=== PATIENT | female | born 2000 | race African-American/Black ===

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

== ENCOUNTER 2019-05-03 20:43 | Emergency (ER) | payer OTHER ==
[~2019-05-03] VITALS: Ht 180.3 cm; Wt 74.4 kg
[2019-05-03 20:46] VITALS: Ht 180.3 cm; Wt 74.4 kg
[2019-05-03 21:33] LABS: BASOPHIL % 0.1 % (0-2); PLATELET COUNT 250 x10^3mcL (130-400); RED CELL DISTRIBUTION WIDTH 12.2 % (11.5-14.5)
[2019-05-03 21:42] LABS: CALCIUM 9.7 mg/dL (8.5-10.1); CARBON DIOXIDE 21.2 mmol/L (21-32); CHLORIDE SERUM 102 mmol/L (98-107); GFR1 > 60 mL/min; GLUCOSE SERUM 131 mg/dL (74-106); POTASSIUM SERUM 4.1 mmol/L (3.5-5.1); SODIUM SERUM 140 mmol/L (136-145)
[2019-05-03 21:47] LABS: UA SPECIFIC GRAVITY >=1.030 (1.005-1.035); microscopic required? YES; urine erythrocyte TRACE (NEGATIVE)
[2019-05-03 21:47] LABS: ALBUMIN 4.1 g/dL (3.4-5.0); ALKALINE PHOSPHATASE 66 U/L (46-116); ALT/SGPT 20 U/L (14-59); AMYLASE 32 U/L (25-115); AST/SGOT 13 U/L (15-37); BILIRUBIN TOTAL 0.6 mg/dL (0.20-1.00); LIPASE 97 IU/L (73-393)
[2019-05-03 21:48] LABS: TOTAL PROTEIN, SERUM 8.3 g/dL (6.4-8.2)
[2019-05-04 00:20] VITALS: BP 108/43
== END 2019-05-04 00:20 | disposition home or self-care (01) ==
LOC: ED 20:43
PROVIDERS: Emergency Medicine
DX: K52.9 Noninfective gastroenteritis and colitis, unspecified (principal); Z90.49 Acquired absence of other specified parts of digestive tract
CPT/HCPCS: J1885; J2270; J2405; J2550; J7030

== ENCOUNTER 2019-06-06 07:51 | Emergency (ER) | payer OTHER ==
[~2019-06-06] VITALS: Ht 180.3 cm; Wt 74.8 kg
[2019-06-06 08:27] LABS: RED CELL DISTRIBUTION WIDTH 12.6 % (11.5-14.5)
[2019-06-06 08:32] LABS: CALCIUM 9.6 mg/dL (8.5-10.1); CARBON DIOXIDE 24.9 mmol/L (21-32); CHLORIDE SERUM 103 mmol/L (98-107); CREATININE SERUM 0.9 mg/dL (0.6-1.0); GFR1 > 60 mL/min; GLUCOSE SERUM 126 mg/dL (74-106); POTASSIUM SERUM 4.2 mmol/L (3.5-5.1); SODIUM SERUM 139 mmol/L (136-145)
[2019-06-06 08:38] LABS: ALBUMIN 3.9 g/dL (3.4-5.0); ALKALINE PHOSPHATASE 53 U/L (46-116); ALT/SGPT 18 U/L (14-59); AST/SGOT 10 U/L (15-37); BILIRUBIN TOTAL 0.6 mg/dL (0.20-1.00)
[2019-06-06 09:55] LABS: BASOPHIL % 0 % (0-2); PLATELET COUNT 266 x10^3mcL (130-400)
[2019-06-06 10:31] LABS: AMPHETAMINE QUAL UR NONE DETECTED (See below)
[2019-06-06 11:19] VITALS: BP 128/48
== END 2019-06-06 11:19 | disposition home or self-care (01) ==
LOC: ED 07:51
PROVIDERS: Emergency Medicine
DX: N83.202 Unspecified ovarian cyst, left side (principal); F12.188 Cannabis abuse with other cannabis-induced disorder; L72.3 Sebaceous cyst; L08.9 Local infection of the skin and subcutaneous tissue, unspecified; Z90.49 Acquired absence of other specified parts of digestive tract
CPT/HCPCS: J1630; J1885; J2060; J2405; J7030

== ENCOUNTER 2019-06-09 09:49 | Emergency (ER) | payer OTHER ==
[~2019-06-09] VITALS: Ht 180.3 cm; Wt 73.2 kg
[2019-06-09 09:55] VITALS: Ht 180.3 cm; Wt 73.2 kg
[2019-06-09 11:17] LABS: CALCIUM 9.1 mg/dL (8.5-10.1); CARBON DIOXIDE 29.3 mmol/L (21-32); CHLORIDE SERUM 103 mmol/L (98-107); CREATININE SERUM 0.8 mg/dL (0.6-1.0); GFR1 > 60 mL/min; GLUCOSE SERUM 108 mg/dL (74-106); POTASSIUM SERUM 3.5 mmol/L (3.5-5.1); SODIUM SERUM 139 mmol/L (136-145)
[2019-06-09 11:22] LABS: ALBUMIN 3.9 g/dL (3.4-5.0); ALKALINE PHOSPHATASE 56 U/L (46-116); ALT/SGPT 22 U/L (14-59); AMYLASE 38 U/L (25-115); AST/SGOT 13 U/L (15-37); BILIRUBIN TOTAL 0.6 mg/dL (0.20-1.00); LIPASE 203 IU/L (73-393); TOTAL PROTEIN, SERUM 7.6 g/dL (6.4-8.2)
[2019-06-09 11:29] LABS: BASOPHIL % 0.1 % (0-2); PLATELET COUNT 245 x10^3mcL (130-400); RED CELL DISTRIBUTION WIDTH 12.4 % (11.5-14.5)
[2019-06-09 14:33] VITALS: BP 120/81
== END 2019-06-09 14:33 | disposition home or self-care (01) ==
LOC: ED 09:49
PROVIDERS: Emergency Medicine
DX: R11.15 Cyclical vomiting syndrome unrelated to migraine (principal)
CPT/HCPCS: J1885; J2270; J2405; J2765; J3010; J7030

== ENCOUNTER 2019-06-11 18:40 | Inpatient (IN) | payer OTHER ==
[~2019-06-11] VITALS: Ht 180.3 cm; Wt 68.9 kg
[2019-06-11 18:48] VITALS: Ht 180.3 cm; Wt 68.9 kg
[2019-06-11 19:29] LABS: RED CELL DISTRIBUTION WIDTH 11.9 % (11.5-14.5)
[2019-06-11 19:35] LABS: CALCIUM 9.3 mg/dL (8.5-10.1); CARBON DIOXIDE 25.5 mmol/L (21-32); CHLORIDE SERUM 101 mmol/L (98-107); CREATININE SERUM 0.8 mg/dL (0.6-1.0); GFR1 > 60 mL/min; GLUCOSE SERUM 99 mg/dL (74-106); POTASSIUM SERUM 4.5 mmol/L (3.5-5.1); SODIUM SERUM 136 mmol/L (136-145)
[2019-06-11 19:39] LABS: BASOPHIL % 0 % (0-2)
[2019-06-11 19:40] LABS: ALBUMIN 3.9 g/dL (3.4-5.0); ALKALINE PHOSPHATASE 57 U/L (46-116); ALT/SGPT 19 U/L (14-59); AST/SGOT 9 U/L (15-37); BILIRUBIN TOTAL 0.6 mg/dL (0.20-1.00); LIPASE 136 IU/L (73-393); TOTAL PROTEIN, SERUM 7.4 g/dL (6.4-8.2)
--- NOTE | 2019-06-11 19:40 | NUR ---
PT RESTING IN BED, AAOX4 WITH C/O 10/10 GENERALIZED ABD PAIN WITH N/V AND GENERALIZED WEAKNESS X 10 DAYS. PT DENIES ANY RESP ILLNESS, FEVER, OR URINARY PROBLEMS AT THIS TIME. PT STATES MULTIPLE VISITS TO ER FOR SAME SYMPTOMS WITH NO RELIEF OF SYMPTOMS WITH RX GIVEN. PT BEING ASSISTED IN WHEELCHAIR BY SIGNIFICANT OTHER.
[2019-06-11 19:52] LABS: PLATELET COUNT 217 x10^3mcL (130-400)
--- NOTE | 2019-06-11 20:34 | NUR ---
PT RESTING IN BED WITH EYES CLOSED WITH NO SIGNS OF DISTRESS. SIGNIFICANT OTHER AT BEDSIDE.
--- NOTE | 2019-06-11 21:10 | NUR ---
PT RESTING IN BED WITH NO SIGNS OF DISTRESS. SIGNIFICANT OTHER AT BEDSIDE.
[2019-06-11] MEDS ORDERED: TRAMADOL HCL50 MG PO (22:07)
[2019-06-11] MEDS ORDERED: PROMETHAZINE HC25 M1 PO ×2 (22:07)
[2019-06-11] MEDS ORDERED: BEN20 PO (22:08)
[2019-06-11] MEDS ORDERED: MOT600 PO (22:09)
--- NOTE | 2019-06-11 22:16 | NUR ---
RESIDENT AT BEDSIDE FOR INTERVIEW/EXAM.
[2019-06-11 22:23] LABS: microscopic required? NO
--- NOTE | 2019-06-11 22:28 | NUR ---
REPORT GIVEN TO JOSEPH RG.
[2019-06-11 22:36] LABS: UA SPECIFIC GRAVITY 1.025 (1.005-1.035); urine erythrocyte NEGATIVE (NEGATIVE)
[2019-06-11 22:56] VITALS: BP 118/63
[2019-06-11 23:02] LABS: AMPHETAMINE QUAL UR NONE DETECTED (See below)
--- NOTE | 2019-06-11 23:03 | NUR ---
RECEIVED PT FROM ER, PT ADMIT FOR COLITIS. PT IS A/O X4, VERBAL RESPONSIVE. LUNG SOUND CLEAR BILATERAL, NO COUGH, NO SOB. PT DENY ANY CHEST PAIN OR DISCOMFORT. BOWEL SOUND PRESENT ALL 4 QUADRANTS, C/O DIARRHEA. BUT DENY ANY ABD PAIN AT THIS MOMENT, PEDAL PULSE PRESENT BOTH FEET, NO EDEMA, IV AT LEFT AC, NO LEAKING, NO INFILTRATION. ALL ADLS ASSIST, ALL NEED MET, CALL LIGHT IN REACH, WILL CONTINUE TO MONITOR.
--- NOTE | 2019-06-12 00:10 | NUR ---
PT RESTING IN BED WITH SIGNIFICANT OTHER IN [place]CLYNER AT BEDSIDE, PT DENIES PAIN AT THIS TIME, ALL PT NEEDS ATTENDED TO, SAFETY PRECAUTIONS IN PLACE, WILL CONTINUE TO MONITOR
--- NOTE | 2019-06-12 02:05 | NUR ---
PT COMPLAINING OF MILD NAUSEA, ADMINISTERED ZOFRAN PER PRN ORDER, SAFETY PRECAUTIONS IN PLACE, WILL CONTINUE TO MONITOR
[2019-06-12 04:47] VITALS: BP 106/61
--- NOTE | 2019-06-12 05:10 | NUR ---
PT RESTED COMFORTABLY THROUGH THE NIGHT WITH NO ACUTE DISTRESS NOTED DURING CARE, PT HAD ONE EPISODE OF NV THAT WAS TREATED EFFECTIVELY WITH PRN ZOFRAN, PT SIGNIFICANT OTHER REMAINED AT BEDSIDE IN RECLYNER THROUGH NIGHT, ALL PT NEEDS ATTENDED TO, SAFETY PRECAUTIONS IN PLACE WILL CONTINUE TO MONTOR AND ENDORSE CARE TO ONCOMING SHIFT
[2019-06-12 06:08] LABS: BASOPHIL % 0.1 % (0-2); PLATELET COUNT 182 x10^3mcL (130-400); RED CELL DISTRIBUTION WIDTH 12.7 % (11.5-14.5)
[2019-06-12 06:26] LABS: CALCIUM 8.3 mg/dL (8.5-10.1); CARBON DIOXIDE 26.2 mmol/L (21-32); CHLORIDE SERUM 105 mmol/L (98-107); CREATININE SERUM 0.8 mg/dL (0.6-1.0); GFR1 > 60 mL/min; GLUCOSE SERUM 79 mg/dL (74-106); MAGNESIUM 1.9 mg/dL (1.8-2.4); PHOSPHOROUS 3.8 mg/dL (2.5-4.9); POTASSIUM SERUM 4.1 mmol/L (3.5-5.1); SODIUM SERUM 138 mmol/L (136-145)
--- NOTE | 2019-06-12 07:25 | NUR ---
RECEIVED REPORT FROM NEEDLE MAKER NURSE PATIENT LYING IN BED WITH EYES CLOSED A&O X4 ABLE TO COMMUNICATE NEEDS, DENIES ANY PAIN AT THIS TIME. IV ON LAC PATENT AND INTACT NO REDNESS OR EDEMA NOTED. ABD SOFT FLAT ACTIVE SOUNDS IN ALL 4 QUADS. NO S/S OF ANY RESPIRATORY DITRESS LUNGS CTA BILAT. ALL QUESTIONS AND CONCERNS ADDRESSED AT THIS TIME. BED IN LOWEST POSITION CALL LIGHT WITHIN REACH. WILL CONTINUE TO MONITOR.
[2019-06-12 09:03] VITALS: BP 138/73
--- NOTE | 2019-06-12 09:30 | NUR ---
PATIENT LYING IN BED AWAKE TALKING WITH FRIEND AT BEDSIDE. PATIENT DENIES ANY PAIN AT THIS TIME. BED IN LOWEST POSITION CALL LIGHT WITHIN REACH. NO S/S OF ANY ACUTE DISTRESS NOTED. WILL CONTINUE TO MONITOR.
--- NOTE | 2019-06-12 11:30 | NUR ---
PATIENT LYING IN BED DENIES ANY PAIN , N/V AT THIS TIME. PATIENT TOLERATED APPLE JUICE AND WATER. ALL NEEDS ATTENDED TO. BED IN LOWEST POSITON CALL LIGHT WITHIN REACH. FRIEND AT BEDSIDE. WILL CONTINUE TO MONITOR.
[2019-06-12 12:17] VITALS: BP 129/61
[2019-06-12] MEDS ORDERED: CIPRO500 MG PO (12:57)
[2019-06-12 13:19] VITALS: BP 129/61
--- NOTE | 2019-06-12 13:55 | NUR ---
Patient sitting up in bed no acute distress noted. Tolerated a sandwich and crackers well. Patient denies any N/V at this time.Discharge instructions given to patient. Patient verbalized understanding. Denies any pain or discomfort at this time. D/C'd IV, catheter intact no redness or edema noted dressing applied. All questions and concerns addressed at this time. All personal belongings taken with patient. Patient escorted to lobby with friend.
== END 2019-06-12 14:01 | disposition home or self-care (01) | DRG 812 ==
LOC: ED 18:40 → MU 22:05
PROVIDERS: Emergency Medicine; ADMIT Internal Medicine
DX: T40.7X1A Poisoning by cannabis (derivatives), accidental (unintentional), initial encounter (principal); F12.10 Cannabis abuse, uncomplicated; K52.9 Noninfective gastroenteritis and colitis, unspecified; Z90.49 Acquired absence of other specified parts of digestive tract; Z82.49 Family history of ischemic heart disease and other diseases of the circulatory system; Y92.89 Other specified places as the place of occurrence of the external cause
CPT/HCPCS: 87046; 87046-59; G0378; J0744; J2270; J2405; J2543; J3010; J3490; J7030; Q0092